=== PATIENT | female | born 1960 | race Caucasian/White ===

== ENCOUNTER 2025-02-11 14:16 | Inpatient (IN) | payer OTHER, MEDICAID ==
[~2025-02-11] VITALS: Ht 160 cm; Wt 87.8 kg
--- NOTE | 2025-02-11 14:31 | ED.PDOC ---
HPI Comments 64 y/o F with PMHx of SVT, BIBA, presents to the ED for CC of chest pain. EMS reports, patient is coming from home where she complains of non-radiating chest pain with associated palpitations onset, [id number]. Upon arrival to scene, patient was found to be in SVT with a heart rate of 170-190bpm. In route to the ED, patient was given 6mg and 12mg of adenosine. Upon arrival to the ED, patient's heart rate at 102 bpm. Patient denies shortness of breath, headache, weakness, nausea, or vomiting. No other symptoms or modifying factors present at this time. Chief Complaint: Chest Pain Time Seen by MD: 14:00 Reviewed Notes: Nurses Notes, Safety Lamp Keeper Notes, Medications, Allergies Allergies: Coded Allergies: Sulfa Antibiotics (Verified Allergy, Unknown, 02/11/25) Vancomycin (Verified Allergy, Unknown, 02/11/25) Information Source: Patient, Emergency Med Personnel Mode of Arrival: EMS Severity: Moderate Timing: Days Duration: Since onset Prehospital treatment: None Location: Substernal Radiation: No Radiation Onset: At Rest Cardiac Risk Factors: None PE Risk Factors: None History of: None Modifying Factors: Nothing Associated Signs and Symptoms: None Past Medical History PAST MEDICAL HISTORY: Denies Surgical History: Denies all surgeries DROSS PULLER History: Denies all DROSS PULLER Hx Family History Family History: Unknown Social History Smoker: Non-Smoker Alcohol: Denies ETOH Use Drugs: Denies Drug Use Lives In: Home Constitutional: denies: chills, diaphoresis, fatigue, fever, malaise, sweats, weakness, others EENTM: denies: blurred vision, double vision, ear bleeding, ear discharge, ear drainage, ear pain, ear ringing, eye pain, eye redness, hearing loss, mouth pain, mouth swelling, nasal discharge, nose bleeding, nose congestion, nose pain, photophobia, tearing, throat pain, throat swelling, voice changes, others Respiratory: denies: cough, hemoptysis, orthopnea, SOB at rest, shortness of breath, SOB with excertion, stridor, wheezing, others Cardiovascular: reports: chest pain, palpitations; denies: dizzy spells, diaphoresis, Dyspnea on exertion, edema, irregular heart beat, left arm pain, lightheadedness, PND, syncope, others Gastrointestinal: denies: abdomen distended, abdominal pain, blood streaked bowels, constipated, diarrhea, dysphagia, difficulty swallowing, hematemesis, melena, nausea, poor appetite, poor fluid intake, rectal bleeding, rectal pain, vomiting, others Genitourinary: denies: abnormal vagina bleeding, burning, dyspareunia, dysuria, flank pain, frequency, hematuria, incontinence, pain, , vagina discharge, urgency, others Neurological: denies: dizziness, fainting, headache, left sided numbness, left sided weakness, numbness, paresthesia, pre-existing deficit, right sided numbness, right sided weakness, seizure, speech problems, tingling, tremors, weakness, others Musculoskeletal: denies: back pain, gout, joint pain, joint swelling, muscle pain, muscle stiffness, neck pain, others Integumetry: denies: bruises, change in color, change in hair/nails, dryness, laceration, lesions, lumps, rash, wounds, others Allergic/Immunocompromised: denies: Difficulty Healing, Frequent Infections, Hives, Itching, others Hematologic/Lymphatic: denies: anemia, blood clots, easy bleeding, easy bruising, swollen glands, others Endocrine: denies: excessive hunger, excessive sweating, excessive thirst, excessive urination, flushing, intolerance to cold, intolerance to heat, unexplained weight gain, unexplained weight loss, others Psychiatric: denies: anxiety, bipolar disorder, depression, hopeless, panic disorder, schizophrenia, sleepless, suicidal, others All Other Systems: Reviewed and Negative Physical Exam General Appearance: Moderate Distress HEENT: Normal ENT Inspection, Pharynx Normal, TMs Normal Neck: Full Range of Motion, Non-Tender, Normal, Normal Inspection Respiratory: Chest Non-Tender, Lungs Clear, No Accessory Muscle Use, No Respiratory Distress, Normal Breath Sounds Cardiovascular: Tachycardia Breast Exam: Deferred Gastrointestinal: No Organomegaly, Non Tender, No Pulsatile Mass, Normal Bowel Sounds, Soft Genitalia: Deferred Pelvic: Deferred Rectal: Deferred Extremities: No calf tenderness, Normal capillary refill, Normal inspection, Normal range of motion, Non-tender, No pedal edema Musculoskeletal : Apperance: Normal Neurologic: Alert, toll operator II-XII nml as Tested, No Motor Deficits, Normal Affect, Normal Mood, No Sensory Deficits Cerebellar Function: NOT DONE Reflexes: NOT DONE Skin: Dry, Normal Color, Warm Peripheral Pulses: 3+ Radial (R), 3+ Radial (L) Lymphatic: No Adenopathy EKG EKG : Pulse Rate (adult): 103 Cardiac Rhythm: ST Was a procedure done? Was a procedure done?: No CP Differential Dx Differential Diagnosis: A-fib, A-Flutter, Angina, Anxiety / Panic Attack, Atrial Dysrhythmia, Electrolyte Disorder, Sinus Tachycardia X-Ray, Labs, Meds, VS Vital Signs Date Time Temp Pulse Resp B/P (MAP) Pulse Ox O2 Delivery O2 Flow Rate FiO2 02/11/25 16:00 97.8 74 12 96/65 (75) 96 97.8 02/11/25 15:34 80 94/62 02/11/25 14:40 Nasal Cannula* 2 28 02/11/25 14:40 97.8 88 21 96/60 (72) 96 97.8 02/11/25 14:34 98 123/78 02/11/25 14:26 98.2 102 20 123/78 (93) 98 98.2 02/11/25 14:16 92 Lab Test 02/11/25 15:09 02/11/25 14:17 Range/Units Troponin I High Sensitivity 14 6 </=34 ng/L White Blood Count 8.7 4.4-10.8 10^3/uL Red Blood Count 5.02 4.0-5.20 10^6/uL Hemoglobin 17.3 H 12.2-16.2 g/dL Hematocrit 50.6 H 36.0-46.0 % Mean Corpuscular Volume 100.8 H 80.0-100.0 fL Mean Corpuscular Hemoglobin 34.5 H 28.0-32.0 pg Mean Corpuscular Hemoglobin Concent 34.2 32.0-36.0 g/dL Red Cell Distribution Width 14.2 11.8-14.3 % Platelet Count 230 140-450 10^3/uL Mean Platelet Volume 8.0 6.9-10.8 fL Neutrophils (%) (Auto) 64.6 37.0-80.0 % Lymphocytes (%) (Auto) 26.7 10.0-50.0 % Monocytes (%) (Auto) 6.4 0.0-12.0 % Eosinophils (%) (Auto) 1.8 0.0-7.0 % Basophils (%) (Auto) 0.5 0.0-2.0 % Neutrophils # (Auto) 5.6 1.6-8.6 10 ^3/uL Lymphocytes # (Auto) 2.3 0.4-5.4 10 ^3/uL Monocytes # (Auto) 0.6 0-1.3 10 ^3/uL Eosinophils # (Auto) 0.2 0-0.8 10 ^3/uL Basophils # (Auto) 0 0-0.2 10 ^3/uL Nucleated Red Blood Cells 0.1 % Sodium Level 144 136-145 mmol/L Potassium Level 4.4 3.5-5.1 mmol/L Chloride Level 113 H 98-107 mmol/L Carbon Dioxide Level 21 20-31 mmol/L Anion Gap 10 5-15 Blood Urea Nitrogen 22 9-23 mg/dL Creatinine 0.98 0.550-1.02 mg/dL Glomerular Filtration Rate Calc 64 >90 mL/min BUN/Creatinine Ratio 22.4 H 10.0-20.0 Serum Glucose 118 H 74-106 mg/dL Calcium Level 9.9 8.7-10.4 mg/dL Current Medications Medications (Trade) Dose Ordered Sig/Augusto Route Start Time Stop Time Status Last Admin Metoprolol Tartrate (Lopressor Tablet) 50 mg ONCE ONCE PO 02/11/25 14:30 02/11/25 14:31 DC 02/11/25 14:34 [place] [id number] Ph: [phone] DIAGNOSTIC IMAGING Diagnostic Imaging Report : [id number] Signed PATIENT: ALEXANDER SIERRA ACCT: [id number] UNIT: [id number] : 1960 LOC: ER ROOM / BED: / AGE / SEX: 64 / F ADM STATUS: REG ER SERVICE 1418 ORDERING PHYSICIAN: DENAE DIEHL MD PROCEDURE(s): CXRP - CHEST PORTABLE REASON: sob ORDER NUMBER(s): [id number], ACCESSION NUMBER(s): [id number] INDICATION: sob TECHNIQUE: Frontal view of the chest. COMPARISON: None FINDINGS: . The heart and mediastinal contours are grossly unremarkable. There is no evidence of pleural disease. The lungs are clear. The bony structures of the chest are intact without fracture. IMPRESSION: 1. No evidence of acute disease. ATED BY: HOWIE TINEO MD DICTATED DATE/TIME: 02/11/25 1502 SIGNED BY: HOWIE TINEO MD SIGNED DATE/TIME: 02/11/25 1502 CC: Patient alert. Was in SVT. Was given adenosine in the field. Vitals stable. Rhythm converted. Was given metoprolol. Was given morphine. Was given Zofran. EKG does show converted rhythm. Chest x-ray reviewed does not show any acute process. Explained to the patient. Continue monitoring. Time of 1ST Reevaluation: 14:30 Reevaluation 1ST: Unchanged Patient Education/Counseling: Diagnosis, Treatment Family Education/Counseling: No Family Present Departure 1 Departure Time of Disposition: 16:33 Impression: Primary Impression: Supraventricular tachycardia Disposition: ADMITTED INPATIENT Admit to: Med Surg Condition: Guarded Critical Care Note Critical Care Time?: Yes (90 min-critical care time only) Critical care comment: Supraventricular tachycardic converted was given metoprolol continue to monitor Stability Stability form required: No Heart Score Heart Score: Heart Score Response (Comments) Value History Slightly Suspicious 0 EKG Normal 0 Age 45-64 1 Risk Factors >3 or Hx ASHD 2 Troponin Normal limit 0 Total 3 I personally scribed for DENAE DIEHL MD ([email or web address]) on 02/11/25 at 14:31. Electronically submitted by Madeleine Conklin [email or web address]). I personally scribed for DENAE DIEHL MD ([email or web address]) on 02/11/25 at 14:44. Electronically submitted by Madeleine Conklin ([email or web address]). I personally scribed for DENAE DIEHL MD ([email or web address]) on 02/11/25 at 14:48. Electronically submitted by Madeleine Conklin ([email or web address]). I personally scribed for DENAE DIEHL MD ([email or web address]) on 02/11/25 at 15:20. Electronically submitted by Madeleine Conklin ([email or web address]). DENAE DIEHL MD February 11, 2025 14:31
[2025-02-11] MEDS: METOPROLOL TARTRATE 50 MG TAB PO ONE (14:34)
[2025-02-11 14:42] LABS: Basophils # (auto) 0 10 ^3/uL (0-0.2); Basophils % (auto) 0.5 % (0.0-2.0); Eosinophils # (auto) 0.2 10 ^3/uL (0-0.8); Eosinophils % (auto) 1.8 % (0.0-7.0); Hematocrit 50.6 % (36.0-46.0); Hemoglobin 17.3 g/dL (12.2-16.2); Lymphocytes # (auto) 2.3 10 ^3/uL (0.4-5.4); Lymphocytes % (auto) 26.7 % (10.0-50.0); Mean Corpuscular Hemoglobin 34.5 pg (28.0-32.0); Mean Corpuscular Hgb Conc. 34.2 g/dL (32.0-36.0); Mean Corpuscular Volume 100.8 fL (80.0-100.0); Monocytes # (auto) 0.6 10 ^3/uL (0-1.3); Monocytes % (auto) 6.4 % (0.0-12.0); Neutrophils # (auto) 5.6 10 ^3/uL (1.6-8.6); Neutrophils % (auto) 64.6 % (37.0-80.0); Nucleated Red Blood Cells % 0.1 %; Platelet Count (auto) 230 10^3/uL (140-450); Red Blood Cells 5.02 10^6/uL (4.0-5.20); Red Cell Distribution Width 14.2 % (11.8-14.3); White Blood Cell 8.7 10^3/uL (4.4-10.8)
[2025-02-11 14:45] LABS: Potassium 4.4 mmol/L (3.5-5.1); Sodium 144 mmol/L (136-145)
[2025-02-11 14:46] LABS: Anion Gap 10 (5-15); Carbon Dioxide 21 mmol/L (20-31)
[2025-02-11 14:47] LABS: Calcium 9.9 mg/dL (8.7-10.4); Chloride 113 mmol/L (98-107)
[2025-02-11 14:52] LABS: BUN/Creatinine Ratio 22.4 (10.0-20.0); Blood Urea Nitrogen 22 mg/dL (9-23); Glucose 118 mg/dL (74-106)
--- NOTE | 2025-02-11 15:04 | DVH ---
INDICATION: sob TECHNIQUE: Frontal view of the chest. COMPARISON: None FINDINGS: . The heart and mediastinal contours are grossly unremarkable. There is no evidence of pleural disea se. The lungs are clear. The bony structures of the chest are intact without fracture. IMPRESSION: 1. No evidence of acute disease.
[2025-02-11] MEDS: ONDANSETRON HCL 4 MG/2 ML VIAL IV ONE (16:44)
[2025-02-11] MEDS: MORPHINE SULFATE 4 MG/ML SYR/VIAL IV ONE (16:45)
[2025-02-11] MEDS ORDERED: ACETAMINOPHEN 325 MG TAB PO PRN (17:15)
[2025-02-11] MEDS ORDERED: DOCUSATE SOD 100 MG CAP PO PRN (17:15)
[2025-02-11] MEDS ORDERED: ONDANSETRON HCL 4 MG/2 ML VIAL IV PRN (17:15)
--- NOTE | 2025-02-11 17:37 | DVHHP2 ---
History of Present Illness Reason for Visit: Palpitations History of Present Illness The patient is a 64-year-old female with past medical history of depression and hyperlipidemia who presented to [facility] ED with complaint of chest pain. Patient reports she has been experiencing a nonradiating chest pain, associated with palpitations, heart rate in the 200 for the past 4 hours, increased shortness of breaths that EMS was called. When EMS arrived on the scene, patient was sent to be in SVT heart rate in the 170s to 190s beats per minute. Patient was given IV 6 mg and 12 mg of adenosine and heart rate converted 102 beats per minutes EN route to our facility ED. patient was seen and evaluated in the ED, laboratory data shows WBC 8.9, hemoglobin 17.3, hematocrit 50.6, platelets 230, sodium 144, potassium 4.4, BUN 22, creatinine 0.98, glucose 118, troponin 14, blood pressure 96/65, heart rate 72, temperature 97.8 F, O2 saturation 96% on oxygen. Chest x-ray show no evidence of acute disease. On my assessment, patient denies chest pain, no headache, no dizziness, no diaphoresis, currently on oxygen, no nausea, no vomiting, no fever, no chills. Patient was admitted for further evaluation and medical management. Past Medical History Depression, hyperlipidemia, SVT. Past Surgical History Denies all surgeries Family History Reviewed, noncontributory to the management of this case. Past Social History The patient lives at home, denies smoking, alcohol or illicit drugs abuse. Review of Systems Constitutional: Yes: Weakness; No: Fever, Chills, Sweats, Malaise, Other Eyes: No: Pain, Vision change, Conjunctivae inflammation, Eyelid inflammation, Other, Redness ENT: No: Ear pain, Ear discharge, Nose pain, Nose discharge, Nose congestion, Mouth pain, Mouth swelling, Throat pain, Throat swelling, Other Respiratory: Shortness of breath; No: Cough, Dry, SOB with excertion, Wheezing, Hemoptysis, Pleuritic Pain, Sputum, Wheezing, Other Cardiovascular: Chest Pain, Palpitations; No: Orthopnea, Paroxysmal Noc. Dyspnea, Edema, Lt Headedness, Other Gastrointestinal: No: Nausea, Vomiting, Abdominal Pain, Diarrhea, Constipation, Melena, Hematochezia, Other Genitourinary: No Dysuria, No Frequency, No Incontinence, No Hematuria, No Retention, No Other Musculoskeletal: No: other, neck pain, shoulder pain, arm pain, back pain, hand pain, leg pain, foot pain Skin: No: Rash, Lesions, Jaundice, Bruising, Other Neurological: No: Weakness, Numbness, Incoordination, Change in speech, Confusion, Seizures, Other Allergies: Coded Allergies: Sulfa Antibiotics (Verified Allergy, Unknown, 02/11/25) Vancomycin (Verified Allergy, Unknown, 02/11/25) Medications Current Medications Medications Dose Ordered Sig/Augusto Route Start Time Stop Time Status Last Admin Dose Admin Aspirin 81 mg DAILY PO 02/12/25 10:00 Gabapentin 300 mg TID PO 02/11/25 22:00 Duloxetine HCl 60 mg DAILY PO 02/12/25 10:00 Quetiapine Fumarate 100 mg BID PO 02/11/25 22:00 Atorvastatin Calcium 20 mg HS PO 02/11/25 22:00 Sodium Chloride 10 ml Q8HR IV 02/11/25 22:00 Acetaminophen/ Hydrocodone Bitart 1 tab Q4HP PRN PO 02/11/25 17:15 Ondansetron HCl 4 mg Q4HP PRN IV 02/11/25 17:15 Docusate Sodium 100 mg BIDPRN PRN PO 02/11/25 17:15 Acetaminophen 650 mg Q6HP PRN PO 02/11/25 17:15 Exam Vital Signs Vital Signs Date Time Temp Pulse Resp B/P (MAP) Pulse Ox O2 Delivery O2 Flow Rate FiO2 02/11/25 17:12 80 16 106/56 02/11/25 16:00 97.8 96 97.8 02/11/25 14:40 Nasal Cannula* 2 28 General Appearance: Alert, Oriented X3, Cooperative, No acute distress HEENT: Atraumatic, PERRLA, EOMI, Mucous membr. moist/pink Respiratory: Clear to auscultation, Normal air movement Cardiovascular: Normal S1, Normal S2, No murmurs, Other (Irregular rate) Abdominal: Normal bowel sounds, Soft, No tenderness, No hepatospenomegaly, No masses Extremities: No clubbing, No cyanosis, No edema, Normal pulses, No tenderness/swelling Skin: No rashes, No breakdown, No significant lesion Neuro: Normal speech, Normal tone, Sensation intact, Cranial nerves 3-12 NL, Reflexes 2+, Other (Generalized weakness) Psych/Mental Status: Mental status NL, Mood NL Labs/Xrays Labs Test 02/11/25 17:05 02/11/25 14:17 Range/Units White Blood Count 8.7 4.4-10.8 10^3/uL Red Blood Count 5.02 4.0-5.20 10^6/uL Hemoglobin 17.3 H 12.2-16.2 g/dL Hematocrit 50.6 H 36.0-46.0 % Mean Corpuscular Volume 100.8 H 80.0-100.0 fL Mean Corpuscular Hemoglobin 34.5 H 28.0-32.0 pg Mean Corpuscular Hemoglobin Concent 34.2 32.0-36.0 g/dL Red Cell Distribution Width 14.2 11.8-14.3 % Platelet Count 230 140-450 10^3/uL Mean Platelet Volume 8.0 6.9-10.8 fL Neutrophils (%) (Auto) 64.6 37.0-80.0 % Lymphocytes (%) (Auto) 26.7 10.0-50.0 % Monocytes (%) (Auto) 6.4 0.0-12.0 % Eosinophils (%) (Auto) 1.8 0.0-7.0 % Basophils (%) (Auto) 0.5 0.0-2.0 % Neutrophils # (Auto) 5.6 1.6-8.6 10 ^3/uL Lymphocytes # (Auto) 2.3 0.4-5.4 10 ^3/uL Monocytes # (Auto) 0.6 0-1.3 10 ^3/uL Eosinophils # (Auto) 0.2 0-0.8 10 ^3/uL Basophils # (Auto) 0 0-0.2 10 ^3/uL Nucleated Red Blood Cells 0.1 % Sodium Level 144 136-145 mmol/L Potassium Level 4.4 3.5-5.1 mmol/L Chloride Level 113 H 98-107 mmol/L Carbon Dioxide Level 21 20-31 mmol/L Anion Gap 10 5-15 Blood Urea Nitrogen 22 9-23 mg/dL Creatinine 0.98 0.550-1.02 mg/dL Glomerular Filtration Rate Calc 64 >90 mL/min BUN/Creatinine Ratio 22.4 H 10.0-20.0 Serum Glucose 118 H 74-106 mg/dL Calcium Level 9.9 8.7-10.4 mg/dL PATIENT: ALEXANDER SIERRA ACCT: [id number] UNIT: [id number] : 1960 LOC: ER ROOM / BED: / AGE / SEX: 64 / F ADM STATUS: REG ER SERVICE 1418 ORDERING PHYSICIAN: DENAE DIEHL MD PROCEDURE(s): CXRP - CHEST PORTABLE REASON: sob ORDER NUMBER(s): [id number], ACCESSION NUMBER(s): [id number] INDICATION: sob TECHNIQUE: Frontal view of the chest. COMPARISON: None FINDINGS: The heart and mediastinal contours are grossly unremarkable. There is no evidence of pleural disease. The lungs are clear. The bony structures of the chest are intact without fracture. IMPRESSION: 1. No evidence of acute disease. Assessment/Plan Assessment/Plan Supraventricular tachycardia Polycythemia vera Chest pain, unspecified Generalized weakness Plan 1. Admit to telemetry unit 2. Breathing treatment 3. Pain control management 4. Management of fluids and electrolytes 5. Consultation for hospitalist 6. Diagnostic tests chest x-ray 7. DVT prophylaxis-on aspirin 8. Repeat labs CBC, CMP in a.m. 9. Continue with current medical management 10. Treatment plan discussed with patient and RN. Patient verbalized understanding. Plan discussed with: Patient, Other (RN) My Orders Orders - TREVA MCCLENDON DNP Procedure Category Date Status Time Aspirin Tablet PHA 02/12/25 In Process 10:00 Gabapentin Capsule PHA 02/11/25 In Process (Neurontin Capsule) 22:00 Duloxetine Hcl PHA 02/12/25 In Process Capsule (Cymbalta 10:00 Quetiapine Fumarate PHA 02/11/25 In Process Tablet (Seroquel Tab 22:00 Atorvastatin (Lipitor) PHA 02/11/25 In Process 22:00 Allergies [place] 02/11/25 In Process 17:03 Code Status CODE 02/11/25 Transmitted 17:03 Sodium Chloride Lock PHA 02/11/25 In Process (Saline Lock Ns) 22:00 Oxygen Per Hour RT 02/11/25 Transmitted 17:03 Hydrocodone-Acet PHA 02/11/25 In Process 5/325mg Tab ([place] 17:15 Ondansetron Hcl PHA 02/11/25 In Process (Zofran) 17:15 Docusate Sodium PHA 02/11/25 In Process Capsule (Colace 17:15 Complete Blood Count LAB 02/12/25 Verified 04:00 Comprehensive LAB 02/12/25 Verified Metabolic Panel 04:00 Cardiac DIET 02/11/25 Transmitted Diet-2gna,Lofat,Lochol Dinner Condition: Serious [facility] 02/11/25 In Process 17:03 Acetaminophen Tablet [facility] 02/11/25 In Process (Tylenol Tablet) 17:15 Bedrest With Bathroom [facility] 02/11/25 In Process Privileg 17:03 Sequential [facility] 02/11/25 In Process Compression Device Admit ADMIT 02/11/25 Verified 17:36 Nitroglycerin [facility] 02/11/25 Verified Sublingual (Ntrostat 17:45 Morphine Sulfate [facility] 02/11/25 Verified Injection 17:45 Stat Ekg For Chest [facility] 02/11/25 Verified Pain 17:36 Notify Md Of Changes [facility] 02/11/25 Verified From Base 17:36 Residential Roofer Helper For [facility] 02/11/25 Verified 24 Hours 17:36 Emergency Dysrhythmia [facility] 02/11/25 Verified Protocol 17:36 Rhythm Strips Once [facility] 02/11/25 Verified Every Shift 17:36 Oxygen By Nasal 02/11/25 Verified Cannula 17:36 Problem List: (1) Supraventricular tachycardia (2) Polycythemia vera (3) Chest pain, unspecified (4) Generalized weakness Date of Service: February 11, 2025 Billing Provider: TREVA MCCLENDON DNP Common Visit Codes: [id number] INP/OBS CARE (HIGH) TREVA MCCLENDON DNP February 11, 2025 17:37
[2025-02-11] MEDS ORDERED: MORPHINE SULFATE INJ 2 MG/ml SYRG IV PRN (17:45)
[2025-02-11] MEDS ORDERED: NITROGLYCERIN 0.4 MG SL TAB SL PRN (17:45)
[2025-02-11] MEDS: ASPirin 81 mg TAB PO ONE (18:55)
--- NOTE | 2025-02-11 18:59 | ECG ---
[facility] Test Date: 2025-02-11 Test Time: 14:12:49 Pat Name: ALEXANDER SIERRA Department: ED Room: [address] [place] [address] Gender: F Contract Technician: radha : 1960 Requested By: DENAE DIEHL Order Number: [id number] Reading MD: Ben Wang Measurements Intervals [place] Rate: 92 P: 77 VT: 140 QRS: 70 QRSD: 78 T: 64 QT: 345 QTc: 427 Interpretive Statements Sinus rhythm Consider left atrial enlargement RSR' in V1 or V2, probably normal variant Electronically Signed On 02-15-2025 22:05:19 PDT by Ben Wang Please click the below link to view image of tracing.
[2025-02-11] MEDS: HYDROcodone-ACET 5/325MG TAB PO PRN (19:22)
[2025-02-11 19:50] VITALS: RESP 18; O2SAT 96
[2025-02-11 22:08] VITALS: BP 99/51; PULSE 70; RESP 18; TEMP 98.7; O2SAT 92
[2025-02-11] MEDS: ATORVASTATIN 20 MG TAB PO SCH (22:42)
[2025-02-11] MEDS: SODIUM CHLOR 0.9% PF (SALINE LOCK) 10ML VIAL/SYR IV SCH (22:43)
[2025-02-11] MEDS: QUEtiapine FUMARATE 100 MG TAB PO SCH (22:43)
[2025-02-11] MEDS: GABAPENTIN 300 MG CAP PO SCH (22:43)
[2025-02-12] VITALS (10 sets, daily range): BP systolic 110–124; BP diastolic 59–88; PULSE 66–81; RESP 14–96; TEMP 97.5–98.4; O2SAT 88–94
[2025-02-12 06:59] LABS: Basophils # (auto) 0 10 ^3/uL (0-0.2); Basophils % (auto) 0.5 % (0.0-2.0); Hemoglobin 15.4 g/dL (12.2-16.2); Lymphocytes # (auto) 3.4 10 ^3/uL (0.4-5.4); Mean Corpuscular Hgb Conc. 34.3 g/dL (32.0-36.0); Monocytes # (auto) 0.5 10 ^3/uL (0-1.3); Red Cell Distribution Width 14.3 % (11.8-14.3)
[2025-02-12 07:01] LABS: Eosinophils # (auto) 0.2 10 ^3/uL (0-0.8); Eosinophils % (auto) 2.7 % (0.0-7.0); Hematocrit 44.9 % (36.0-46.0); Lymphocytes % (auto) 42.4 % (10.0-50.0); Mean Corpuscular Hemoglobin 34.7 pg (28.0-32.0); Mean Corpuscular Volume 100.9 fL (80.0-100.0); Monocytes % (auto) 6.7 % (0.0-12.0); Neutrophils # (auto) 3.9 10 ^3/uL (1.6-8.6); Neutrophils % (auto) 47.7 % (37.0-80.0); Nucleated Red Blood Cells % 0.2 %; Platelet Count (auto) 196 10^3/uL (140-450); Red Blood Cells 4.44 10^6/uL (4.0-5.20); White Blood Cell 8.1 10^3/uL (4.4-10.8)
[2025-02-12 07:02] LABS: Alanine Aminotransferase 12 U/L (7-40); Albumin 4.1 g/dL (3.2-4.8); Anion Gap 10 (5-15); BUN/Creatinine Ratio 28.9 (10.0-20.0); Blood Urea Nitrogen 22 mg/dL (9-23); Calcium 9.4 mg/dL (8.7-10.4); Carbon Dioxide 23 mmol/L (20-31); Glucose 101 mg/dL (74-106); Potassium 3.8 mmol/L (3.5-5.1); Sodium 142 mmol/L (136-145); Total Protein 6.2 g/dL (5.7-8.2)
[2025-02-12 07:03] LABS: Bilirubin, Total 0.6 mg/dL (0.2-1.0)
[2025-02-12 07:04] LABS: Alkaline Phosphatase 124 U/L (46-116); Aspartate Aminotransferase 9 U/L (13-40); Chloride 109 mmol/L (98-107)
[2025-02-12] MEDS: DULoxetine HCL 30 MG CAP PO SCH ×2 (10:00→11:03)
[2025-02-12] MEDS: methylPREDNISolone SOD SUCC 40 MG/ML VL IV SCH (11:02)
[2025-02-12] MEDS: HYDROcodone-ACET 5/325MG TAB PO PRN (11:03)
[2025-02-12] MEDS: ASPirin 81 mg TAB PO SCH (11:04)
[2025-02-12] MEDS: METOPROLOL SUCCINATE XL 50 MG TAB PO SCH (11:04)
[2025-02-12] MEDS: CITALOPRAM HYDROBR 20 MG TAB PO SCH (11:04)
[2025-02-12] MEDS: NICOTINE 21MG/24 HR TOPICAL PATCH TD SCH (11:05)
[2025-02-12] MEDS: LEVALBUTEROL HCL 1.25 MG/3 ML NEB NEB SCH (14:58)
[2025-02-12] MEDS: IPRATROPIUM BROM 0.5 MG/2.5ML INH SOL NEB SCH (14:58)
[2025-02-12] MEDS: MORPHINE SULFATE 4 MG/ML SYR/VIAL IV PRN (17:11)
[2025-02-12 18:05] LABS: Rapid Influenza A Negative (Negative); Rapid Influenza B Negative (Negative)
[2025-02-12 18:05] LABS: COVID19 ANTIGEN SOFIA FIA NEGATIVE (NEGATIVE)
--- NOTE | 2025-02-12 20:36 | DVHPNRES ---
Progress Note Date Seen: February 12, 2025 Resident Creating Document: MYRANDA PEÑALOZA RESIDENT Medical Necessity Reason Pt with a Central, PICC or Fol: No Subjective Review of Systems Patient is a 64-year-old female with a past medical history of depression, supra ventricular tachycardia,? COPD was brought to the ED via EMS after she had palpitations at home. Patient reported that she was in her bed and started to feel dizzy following which she checked her pulse and she could not recorded and she felt palpitations following which she called with the EMS and reported that she had high blood pressure and heart rate in the 120s. Patient had an episode of supraventricular tachycardia in the 1st week of December 2024 when she was in the hospital following which she underwent a left heart catheterization which did not show any vaso-occlusive disease with the patient was started on a beta елена metoprolol. Patient reported that since that episode she had been fine until yesterday when she experienced an episode of palpitations associated with chest pain which was dull in character, nonradiating and relieved on its own once the palpitations went away. Past medical history: As per HPI Past surgical history: Left femur surgery, left knee surgery Social history: Patient smokes a pack of cigarettes per day for the last 20 years, denies alcohol in any other drug use Home medications: Citalopram 40 mg daily, duloxetine 60 mg b.i.d., quetiapine 400 mg at night, aspirin 81 mg, rosuvastatin 20 mg, metoprolol 100 mg Review of systems Patient seen and examined at the bedside On 1-2 L oxygen, denied using oxygen at home saturating between 92-94% Denied palpitations, chest pain, dizziness, blurred vision, headache. Objective vital signs Vital Sign Date Time Temp Pulse Resp B/P (MAP) Pulse Ox O2 Delivery O2 Flow Rate FiO2 02/12/25 17:41 80 16 115/75 02/12/25 17:00 97.5 90 97.5 02/12/25 15:18 1.0 24 02/12/25 14:58 Room Air Total Intake and Output 02/11/25 02/11/25 02/12/25 15:00 23:00 07:00 Intake Total 500 ml Balance 500 ml medications Current Medications Medications Dose Ordered Sig/Augusto Route Start Time Stop Time Status Last Admin Dose Admin Aspirin 81 mg DAILY PO 02/12/25 10:00 02/12/25 11:04 81 MG Gabapentin 300 mg TID PO 02/11/25 22:00 02/12/25 14:00 300 MG Duloxetine HCl 60 mg DAILY PO 02/12/25 10:00 Hold 02/12/25 11:03 60 MG Sodium Chloride 10 ml Q8HR IV 02/11/25 22:00 02/12/25 14:23 10 ML Ondansetron HCl 4 mg Q4HP PRN IV 02/11/25 17:15 Acetaminophen 650 mg Q6HP PRN PO 02/11/25 17:15 Atorvastatin Calcium 40 mg HS PO 02/12/25 22:00 Acetaminophen/ Hydrocodone Bitart 2 tab Q6HP PRN PO 02/12/25 09:30 02/12/25 11:03 2 TAB Quetiapine Fumarate 400 mg HS PO 02/12/25 22:00 Duloxetine HCl 60 mg BID PO 02/12/25 10:00 Citalopram Hydrobromide 40 mg DAILY PO 02/12/25 10:00 02/12/25 11:04 40 MG Nicotine 1 patch DAILY TD 02/12/25 10:00 02/12/25 11:05 1 PATCH Levalbuterol HCl 0.625 mg Q8HR NEB 02/12/25 14:00 02/12/25 14:58 0.625 MG Ipratropium [place] 0.5 mg Q8HR NEB 02/12/25 14:00 02/12/25 14:58 0.5 MG Methylprednisolone Sodium Succinate 40 mg DAILY IV 02/12/25 10:00 02/12/25 11:02 40 MG Metoprolol Succinate 50 mg DAILY PO 02/13/25 10:00 Morphine Sulfate 1 mg Q6HP PRN IV 02/12/25 17:15 02/12/25 17:11 1 MG Examination Gen - no pallor, no icterus, no cyanosis, no clubbing, no LAD, no edema . Skin - Patients skin is warm and dry. HEENT - normocephalic, atraumatic, moist mucous membranes. Neck - full ROM, no LAD, no JVD Pulmonary - B/L mildly diminished breath sounds, no crackles, diffuse wheezing present, no stridor. cardiovascular - regular S1,S2 heard, no added sounds, no murmurs heard. peripheral pulses normal radial 2+, pedal 2+. capillary refill normal <2 secs. GI - soft, nontender abdomen. no hepatospleenomegaly. Bowel sounds normoactive Neurological - Patient is A/O X 3 . Bilateral upper extremity strength 5/5, bilateral lower extremity strength 5/5, no facial droop, normal speech, no tremor, no sensory deficiets. laboratory and microbiology Laboratory Tests 02/12/25 05:17 Test 02/12/25 05:17 Range/Units Serum Glucose 101 74-106 mg/dL Microbiology Date/Time Source Procedure Growth Status 02/11/25 23:15 Nose MRSA Screen - Final Complete Problem List/Assessment/Plan Problem List/Assessment/Plan Palpitations, sinus tachycardia H/o supraventricular tachycardia NSTEMI likely type 2 due to demand ischemia - ECG shows sinus tachycardia with no new ST segment or T-wave changes - s/p left heart catheterization in December 2024 with no vaso-occlusive disease seen - on aspirin, atorvastatin and metoprolol succinate Acute hypoxic respiratory COPD exacerbation - 20 pack year history of smoking - patient does not follow a engine repair supervisor and has never undergone a spirometry test - methylprednisolone IV - DuoNebs q.8 hours H/o major depression Chronic lower back and leg pain - on citalopram and duloxetine - quetiapine - patient follows with pain management and is continued on [place] 10/325 q.6 hours p.r.n PUD prophylaxis: Famotidine DVT prophylaxis: Enoxaparin Goals of care discussed with the patient for over 29 minutes. Full code Time spent: 37 minutes Plan discussed with Dr. Bolton Plan discussed with: Patient My Orders My Orders Orders - MYRANDA PEÑALOZA RESIDENT Procedure Category Date Status Time Atorvastatin (Lipitor) PHA 02/12/25 In Process 22:00 Hydrocodone-Acet PHA 02/12/25 In Process 5/325mg Tab ([place] 09:30 Quetiapine Fumarate PHA 02/12/25 In Process Tablet (Seroquel Tab 22:00 Duloxetine Hcl PHA 02/12/25 In Process Capsule (Cymbalta 10:00 Citalopram Tablet PHA 02/12/25 In Process (Celexa Tablet) 10:00 Nicotine 21mg/24hr PHA 02/12/25 In Process (Nicoderm 21mg/24hr) 10:00 Levalbuterol Hcl PHA 02/12/25 In Process (Xopenex Medneb) 14:00 Ipratropium Medneb PHA 02/12/25 In Process (Atrovent Medneb) 14:00 Methylprednisolone PHA 02/12/25 In Process Sod Succ (Solu Medrol 10:00 Metoprolol Xl PHA 02/13/25 In Process Succinate (Toprol Xl) 10:00 Date of Service: February 12, 2025 Billing Provider: BASILIO BOLTON MD Common Visit Codes: [id number] INP/OBS CARE(HIGH) MYRANDA PEÑALOZA RESIDENT February 12, 2025 20:36 BASILIO BOLTON MD February 12, 2025 22:40
[2025-02-12] MEDS: QUEtiapine FUMARATE 100 MG TAB PO SCH (21:13)
[2025-02-12] MEDS: ATORVASTATIN 20 MG TAB PO SCH (21:13)
[2025-02-12] MEDS: ENOXAPARIN SOD 40 MG/0.4 ML SYRINGE SC ONE (21:18)
[2025-02-13] VITALS (12 sets, daily range): BP systolic 108–133; BP diastolic 62–83; PULSE 64–80; RESP 16–94; TEMP 97.6–98.8; O2SAT 88–96
[2025-02-13 07:18] LABS: Calcium 8.8 mg/dL (8.7-10.4); Potassium 3.7 mmol/L (3.5-5.1); Sodium 142 mmol/L (136-145)
[2025-02-13 07:19] LABS: Anion Gap 7 (5-15); Carbon Dioxide 26 mmol/L (20-31)
[2025-02-13 07:24] LABS: BUN/Creatinine Ratio 28.9 (10.0-20.0); Blood Urea Nitrogen 22 mg/dL (9-23)
[2025-02-13 07:25] LABS: Basophils # (auto) 0 10 ^3/uL (0-0.2); Eosinophils # (auto) 0.1 10 ^3/uL (0-0.8); Hemoglobin 15.2 g/dL (12.2-16.2); Lymphocytes # (auto) 2.2 10 ^3/uL (0.4-5.4); Mean Corpuscular Hemoglobin 34.6 pg (28.0-32.0); Neutrophils # (auto) 7.9 10 ^3/uL (1.6-8.6); Platelet Count (auto) 181 10^3/uL (140-450); Red Blood Cells 4.39 10^6/uL (4.0-5.20)
[2025-02-13 07:27] LABS: Basophils % (auto) 0.1 % (0.0-2.0); Eosinophils % (auto) 0.5 % (0.0-7.0); Hematocrit 44.3 % (36.0-46.0); Lymphocytes % (auto) 20.3 % (10.0-50.0); Mean Corpuscular Hgb Conc. 34.3 g/dL (32.0-36.0); Monocytes # (auto) 0.7 10 ^3/uL (0-1.3); Monocytes % (auto) 6.1 % (0.0-12.0); Nucleated Red Blood Cells % 0.1 %; Red Cell Distribution Width 13.5 % (11.8-14.3); White Blood Cell 10.9 10^3/uL (4.4-10.8)
[2025-02-13 07:28] LABS: Folate (Folic Acid) 12.2 ng/mL (>5.38)
[2025-02-13 07:30] LABS: Chloride 109 mmol/L (98-107)
[2025-02-13 07:31] LABS: Glucose 118 mg/dL (74-106)
[2025-02-13] MEDS: CYANOCOBALAMIN (B-12) 1000 MCG/1 ML VIAL IM ONE (10:00)
[2025-02-13] MEDS: FAMOTIDINE 20 MG TAB PO SCH (10:00)
[2025-02-13] MEDS: METOPROLOL SUCCINATE XL 50 MG TAB PO SCH (11:15)
[2025-02-13] MEDS: ENOXAPARIN SOD 40 MG/0.4 ML SYRINGE SC SCH (11:16)
--- NOTE | 2025-02-13 15:41 | DVH ---
Procedure: CT CHEST WITHOUT CONTRAST Reason for study/Clinical History: COPD Comparison Study: Chest radiograph dated 02/11/2025 TECHNIQUE: Multidetector CT of the chest was performed from the lung apices to the upper abdomen with out the use of intravenous contract. Axial, coronal and sagittal multiplanar reformats were performed . Radiation Dose Information: CT Dose: CTDI volume is 13.26 mGy. Dose-length product is 495.9 mGy*cm The dose indicators for CT are the volume Computed Tomography (CT) Dose Index (CTDIvol) and the Dose Length Product (DLP), and are measured in units of mGy and mGy-cm, respectively. These indicators are not patient dose, but values generated from the CT scanner acquisition factors. The report includes radiation exposure data for exposures received during this examination. FINDINGS: Lower neck: Unremarkable. Lungs: Right lower lobe consolidation. Subsegmental linear atelectasis in the left lung base. Heart/Vascular Structures: Cardiomegaly. Lymph Nodes: No adenopathy Pleura: No pleural effusion or significant pneumothorax. Musculoskeletal: No acute osseous abnormality. Soft tissues: Bilateral breast prosthesis. Upper abdomen: Limited portions of the upper abdomen are unremarkable. IMPRESSION: Right lower lobe consolidation. Cardiomegaly.
[2025-02-13] MEDS: cefTRIAXone 1GM/50ML D5W 50 ML IV ONE (16:20)
[2025-02-13] MEDS: DOXYCYCLINE 100 MG TAB/CAP PO ONE (16:20)
[2025-02-13] MEDS ORDERED: DOXY1CAP57 PO (17:40)
[2025-02-13] MEDS ORDERED: PRED20TA2 PO (17:40)
[2025-02-13] MEDS ORDERED: METO-6 PO (17:40)
[2025-02-13] MEDS ORDERED: CEFP200T15 PO (17:40)
--- NOTE | 2025-02-13 17:46 | DVHDSRES ---
Discharge Summary Date of Admission Resident Creating Document: MYRANDA PEÑALOZA RESIDENT February 11, 2025 at 17:36 Date of Discharge: February 13, 2025 Admitting Diagnosis Supraventricular tachycardia Polycythemia vera Chest pain, unspecified Generalized weakness Wounds: none Labs/Diagnostic Data: Laboratory Results Test 02/13/25 06:20 02/12/25 09:21 02/12/25 05:17 02/12/25 00:00 White Blood Count 10.9 10^3/uL (4.4-10.8) Red Blood Count 4.39 10^6/uL (4.0-5.20) Hemoglobin 15.2 g/dL (12.2-16.2) Hematocrit 44.3 % (36.0-46.0) Mean Corpuscular Volume 101.0 fL (80.0-100.0) Mean Corpuscular Hemoglobin 34.6 pg (28.0-32.0) Mean Corpuscular Hemoglobin Concent 34.3 g/dL (32.0-36.0) Red Cell Distribution Width 13.5 % (11.8-14.3) Platelet Count 181 10^3/uL (140-450) Mean Platelet Volume 8.2 fL (6.9-10.8) Neutrophils (%) (Auto) 73.0 % (37.0-80.0) Lymphocytes (%) (Auto) 20.3 % (10.0-50.0) Monocytes (%) (Auto) 6.1 % (0.0-12.0) Eosinophils (%) (Auto) 0.5 % (0.0-7.0) Basophils (%) (Auto) 0.1 % (0.0-2.0) Neutrophils # (Auto) 7.9 10 ^3/uL (1.6-8.6) Lymphocytes # (Auto) 2.2 10 ^3/uL (0.4-5.4) Monocytes # (Auto) 0.7 10 ^3/uL (0-1.3) Eosinophils # (Auto) 0.1 10 ^3/uL (0-0.8) Basophils # (Auto) 0 10 ^3/uL (0-0.2) Nucleated Red Blood Cells 0.1 % Sodium Level 142 mmol/L (136-145) Potassium Level 3.7 mmol/L (3.5-5.1) Chloride Level 109 mmol/L (98-107) Carbon Dioxide Level 26 mmol/L (20-31) Anion Gap 7 (5-15) Blood Urea Nitrogen 22 mg/dL (9-23) Creatinine 0.76 mg/dL (0.550-1.02) Glomerular Filtration Rate Calc 87 mL/min (>90) BUN/Creatinine Ratio 28.9 (10.0-20.0) Serum Glucose 118 mg/dL (74-106) Calcium Level 8.8 mg/dL (8.7-10.4) Vitamin B12 Level 233 pg/mL (211-911) Vitamin D 25-Hydroxy 36.5 ng/mL (30.0-100) Folic Acid 12.20 ng/mL (>5.38) Influenza Type A Antigen Negative (Negative) Influenza Type B Antigen Negative (Negative) Total Bilirubin 0.6 mg/dL (0.2-1.0) Aspartate Amino Transferase (AST) 9 U/L (13-40) Alanine Aminotransferase (ALT) 12 U/L (7-40) Alkaline Phosphatase 124 U/L (46-116) Total Protein 6.2 g/dL (5.7-8.2) Albumin 4.1 g/dL (3.2-4.8) SARS-CoV-2 Antigen (Rapid) Negative (NEGATIVE) Test 02/11/25 17:05 Troponin I High Sensitivity 43 ng/L (</=34) Other Laboratory Tests 02/13/25 06:20 Brief Hx & Hospital Course: Patient is a 64-year-old female with a past medical history of depression, supra ventricular tachycardia,? COPD was brought to the ED via EMS after she had palpitations at home. Patient reported that she was in her bed and started to feel dizzy following which she checked her pulse and she could not recorded and she felt palpitations following which she called with the EMS and reported that she had high blood pressure and heart rate in the 120s. Patient had an episode of supraventricular tachycardia in the 1st week of December 2024 when she was in the hospital following which she underwent a left heart catheterization which did not show any vaso-occlusive disease with the patient was started on a beta елена metoprolol. Patient reported that since that episode she had been fine until yesterday when she experienced an episode of palpitations associated with chest pain which was dull in character, nonradiating and relieved on its own once the palpitations went away. Past medical history: As per HPI Past surgical history: Left femur surgery, left knee surgery Social history: Patient smokes a pack of cigarettes per day for the last 20 years, denies alcohol in any other drug use Home medications: Citalopram 40 mg daily, duloxetine 60 mg b.i.d., quetiapine 400 mg at night, aspirin 81 mg, rosuvastatin 20 mg, metoprolol 100 mg Brief hospital course Initial 12 lead ECG showed sinus tachycardia with a heart rate around 105, showed no new ST or T-wave changes. Troponin levels were mildly elevated likely due to demand ischemia. Patient recently had cardiac workup including a left heart catheterization done in the 1st week of December which did not show any vaso- occlusive disease. Patient had shortness of breath and had to be put on oxygen support and on exam had diffuse wheezing following which patient was started on nebulizer and was given IV steroids. CT chest without contrast showed right lower lobe small consolidation for which she was given IV antibiotics. Patient's oxygen requirement improved and she was weaned of oxygen eventually. Patient did not have any episode of tachycardia or arrhythmia on the telemetry. Patient was discharged in stable condition to home Discharge plan Medications: Prednisolone 40 mg daily for 5 days, cefpodoxime 200 mg b.i.d. for 5 days, doxycycline 100 mg b.i.d. for 5 days Continue on all other home medications including metoprolol succinate 100 mg daily and other psych and antidepressants Patient is advised to follow up with her primary care provider within 1 week She is explained that because of long history of smoking she likely has COPD and needs further evaluation with a injection molding supervisor with spirometry and 6 minute walk test. She is a advised to strictly avoid smoking and is given nicotine patches for home. Consults/Reason for consult none Operations or Procedures none Condition at Discharge: Good Final Diagnosis/Problems List Palpitations, sinus tachycardia H/o supraventricular tachycardia NSTEMI likely type 2 due to demand ischemia Acute hypoxic respiratory COPD exacerbation H/o major depression Chronic lower back and leg pain Discharge Disposition: Home Discharge Instruct/Medications Diet: Cardiac 2g Na,low cholest Activity: No Restrictions, As Tolerated Follow Up/Referral: Follow up with the primary care provider in one week Patient needs to follow up with injection molding supervisor for further workup of COPD Medications: as per EMR Discharge Statement: "Patient was advised to return to the ER or call 911 if any headaches, dizziness, shortness of breath, chest pain, abdominal pain, bleeding, fevers, or worsening of medical condition. Patient was counseled about treatment plan, medications, possible side effects, patientverbalized understanding. All questions were answered to the best of my ability. This discharge took greater then 30 minutes in planning, reviewing documentation, counseling the patient, and discussing with other team members." ASSESSMENT ASSESSMENT Assessment Palpitations, sinus tachycardia H/o supraventricular tachycardia NSTEMI likely type 2 due to demand ischemia Acute hypoxic respiratory COPD exacerbation H/o major depression Chronic lower back and leg pain Date of Service: February 13, 2025 Billing Provider: BASILIO JARRELL MD Common Visit Codes: [id number] DISCH DAY >30min MYRANDA PEÑALOZA RESIDENT February 13, 2025 17:46 BASILIO JARRELL MD February 14, 2025 05:25
== END 2025-02-13 17:30 | disposition home or self-care (01) | DRG 280 ==
LOC: ER 14:16 → EDBD 14:16 → OVERFLOW 17:36 → TELE-EAST 22:44
PROVIDERS: ADMIT Internal Medicine; ATTEND Internal Medicine
DX: I47.10 Supraventricular tachycardia, unspecified (principal); J96.01 Acute respiratory failure with hypoxia; I21.A1 Myocardial infarction type 2; J44.1 Chronic obstructive pulmonary disease with (acute) exacerbation; D45 Polycythemia vera; E78.5 Hyperlipidemia, unspecified; Z88.1 Allergy status to other antibiotic agents; Z88.2 Allergy status to sulfonamides; Z87.891 Personal history of nicotine dependence; Z79.899 Other long term (current) drug therapy
CPT/HCPCS: 36415; 71045; 71250; 80048; 80053; 82306; 82607; 82746; 84484; 85025; 87081; 87426; 87804; 93005; 94640; 96374; 96375; 99291; 99292; G0378; J2405

== ENCOUNTER 2025-05-13 20:53 | Emergency (ER) | payer OTHER, MEDICAID ==
[~2025-05-13] VITALS: Ht 170.2 cm; Wt 84.0 kg
[~2025-05-13 20:53] MED LIST: CEFP200T15 PO; DOXY1CAP57 PO; METO-6 PO; PRED20TA2 PO
--- NOTE | 2025-05-13 21:03 | ECG ---
[facility] Test Date: 2025-05-13 Test Time: 20:56:59 Pat Name: ALEXANDER SIERRA Department: Room: Gender: F Art Instructor: DILLON : 1960 Requested By: EMERGENCY EMERGENCY Order Number: [id number] Reading MD: Ben Wang Measurements Intervals [place] Rate: 96 P: 61 CA: 147 QRS: 49 QRSD: 101 T: 49 QT: 355 QTc: 449 Interpretive Statements Sinus rhythm Probable left atrial enlargement RSR' in V1 or V2, right VCD or RVH Baseline wander in lead(s) V4,V5,V6 Electronically Signed On 05-14-2025 13:12:41 PDT by Ben Wang Please click the below link to view image of tracing.
--- NOTE | 2025-05-13 21:09 | ED.PDOC ---
HPI Comments 64 year old female presents to the ED via EMS with a chief complaint of chest pain onset today. Patient states she began experiencing chest pain radiates to RT arm, rates pain 8/10. She was given Nitro and Aspirin by EMS in route to ED, with no relief of symptoms. She noticed pain is causing shortness of breath. Initially patient's BP was 180 systolic, after medication is was 120 systolic. She has episodes of SVT, current HR was 110. PMHx COPD, CHF, HTN, SVT. Denies headache, dizziness, nausea, vomiting, diarrhea, fever, chills. No other symptoms or modifying factors present at this time. Chief Complaint: Chest Pain Time Seen by MD: 21:00 Primary Care Provider: UNKNOWN Reviewed Notes: Medications, Allergies Allergies: Coded Allergies: Sulfa Antibiotics (Verified Allergy, Unknown, 02/11/25) Vancomycin (Verified Allergy, Unknown, 02/11/25) Home Meds Active Scripts Doxycycline Monohydrate (Doxycycline Monohydrate) 100 Mg Cap, 100 MG PO BID for 5 Days, #10 CAP 0 Refills Prov:MYRANDA PEÑALOZA 02/13/25 Cefpodoxime Proxetil (Cefpodoxime Proxetil) 200 Mg Tab, 200 MG PO BID for 5 Days, #10 TAB 0 Refills Prov:MYRANDA PEÑALOZA 02/13/25 Prednisone (Prednisone) 20 Mg Tab, 40 MG PO DAILY for 5 Days, #10 MG 0 Refills Prov:MYRANDA PEÑALOZA 02/13/25 Metoprolol Succinate (Toprol Xl) 50 Mg Tab, 100 MG PO DAILY for 28 Days, #56 TAB Prov:MYRANDA PEÑALOZA 02/13/25 Information Source: Patient, Emergency Med Personnel Mode of Arrival: EMS Severity: Moderate Timing: Hours Duration: Since onset Prehospital treatment: Oxygen Location: Chest (L) Radiation: Arm (R) Quality: Sharp Onset: At Rest Cardiac Risk Factors: Smoker, HTN PE Risk Factors: None History of: Similar pain in past Modifying Factors: Nothing Associated Signs and Symptoms: SOB Past Medical History PAST MEDICAL HISTORY: CHF, COPD, HTN Surgical History: Denies all surgeries HEAD OF HUMAN RESOURCES History: Denies all HEAD OF HUMAN RESOURCES Hx Family History Family History: Unknown Social History Smoker: Cigarettes Alcohol: Denies ETOH Use Drugs: Denies Drug Use Lives In: Home Constitutional: denies: chills, diaphoresis, fatigue, fever, malaise, sweats, weakness, others EENTM: denies: blurred vision, double vision, ear bleeding, ear discharge, ear drainage, ear pain, ear ringing, eye pain, eye redness, hearing loss, mouth pain, mouth swelling, nasal discharge, nose bleeding, nose congestion, nose pain, photophobia, tearing, throat pain, throat swelling, voice changes, others Respiratory: reports: shortness of breath; denies: cough, hemoptysis, orthopnea, SOB at rest, SOB with excertion, stridor, wheezing, others Cardiovascular: reports: chest pain; denies: dizzy spells, diaphoresis, Dyspnea on exertion, edema, irregular heart beat, left arm pain, lightheadedness, palpitations, PND, syncope, others Gastrointestinal: denies: abdomen distended, abdominal pain, blood streaked bowels, constipated, diarrhea, dysphagia, difficulty swallowing, hematemesis, melena, nausea, poor appetite, poor fluid intake, rectal bleeding, rectal pain, vomiting, others Genitourinary: denies: abnormal vagina bleeding, burning, dyspareunia, dysuria, flank pain, frequency, hematuria, incontinence, pain, , vagina discharge, urgency, others Neurological: denies: dizziness, fainting, headache, left sided numbness, left sided weakness, numbness, paresthesia, pre-existing deficit, right sided numbness, right sided weakness, seizure, speech problems, tingling, tremors, weakness, others Musculoskeletal: denies: back pain, gout, joint pain, joint swelling, muscle pain, muscle stiffness, neck pain, others Integumetry: denies: bruises, change in color, change in hair/nails, dryness, laceration, lesions, lumps, rash, wounds, others Allergic/Immunocompromised: denies: Difficulty Healing, Frequent Infections, Hives, Itching, others Hematologic/Lymphatic: denies: anemia, blood clots, easy bleeding, easy bruising, swollen glands, others Endocrine: denies: excessive hunger, excessive sweating, excessive thirst, excessive urination, flushing, intolerance to cold, intolerance to heat, unexplained weight gain, unexplained weight loss, others Psychiatric: denies: anxiety, bipolar disorder, depression, hopeless, panic disorder, schizophrenia, sleepless, suicidal, others All Other Systems: Reviewed and Negative Physical Exam General Appearance: No Apparent Distress, Normal HEENT: Normal ENT Inspection, Pharynx Normal, TMs Normal Neck: Full Range of Motion, Non-Tender, Normal, Normal Inspection Respiratory: Chest Non-Tender, Lungs Clear, No Accessory Muscle Use, No Res piratory Distress, Normal Breath Sounds Cardiovascular: No Edema, No JVD, No Murmur, No Gallop, Normal Peripheral Pulses, Regular Rate/Rhythm Breast Exam: Deferred Gastrointestinal: No Organomegaly, Non Tender, No Pulsatile Mass, Normal Bowel Sounds, Soft Genitalia: Deferred Pelvic: Deferred Rectal: Deferred Extremities: No calf tenderness, Normal capillary refill, Normal inspection, Normal range of motion, Non-tender, No pedal edema Musculoskeletal : Apperance: Normal Neurologic: Alert, mate ship II-XII nml as Tested, No Motor Deficits, Normal Affect, Normal Mood, No Sensory Deficits Cerebellar Function: Normal Reflexes: Normal Skin: Dry, Normal Color, Warm Lymphatic: No Adenopathy Was a procedure done? Was a procedure done?: No CP Differential Dx Differential Diagnosis: Angina, Electrolyte Disorder, Heart Failure, [place], V-Fib, V-Tach, Other X-Ray, Labs, Meds, VS Vital Signs Date Time Temp Pulse Resp B/P (MAP) Pulse Ox O2 Delivery O2 Flow Rate FiO2 05/14/25 00:45 72 16 124/63 (83) 97 05/13/25 22:35 98.1 77 16 137/85 (102) 97 98.1 05/13/25 22:30 72 18 96 Nasal Cannula* 2 05/13/25 21:57 87 05/13/25 21:24 20 Nasal Cannula* 2 28 05/13/25 21:24 95 Nasal Cannula* 2 28 05/13/25 21:02 98.6 101 20 129/85 96 98.6 05/13/25 20:56 96 Lab Test 05/13/25 21:49 05/13/25 21:06 Range/Units Troponin I High Sensitivity 3 L < 3 L </=34 ng/L White Blood Count 7.7 4.4-10.8 10^3/uL Red Blood Count 4.51 4.0-5.20 10^6/uL Hemoglobin 15.9 12.2-16.2 g/dL Hematocrit 45.8 36.0-46.0 % Mean Corpuscular Volume 101.7 H 80.0-100.0 fL Mean Corpuscular Hemoglobin 35.3 H 28.0-32.0 pg Mean Corpuscular Hemoglobin Concent 34.7 32.0-36.0 g/dL Red Cell Distribution Width 13.4 11.8-14.3 % Platelet Count 215 140-450 10^3/uL Mean Platelet Volume 7.7 6.9-10.8 fL Neutrophils (%) (Auto) 63.8 37.0-80.0 % Lymphocytes (%) (Auto) 28.0 10.0-50.0 % Monocytes (%) (Auto) 5.0 0.0-12.0 % Eosinophils (%) (Auto) 3.0 0.0-7.0 % Basophils (%) (Auto) 0.2 0.0-2.0 % Neutrophils # (Auto) 4.9 1.6-8.6 10 ^3/uL Lymphocytes # (Auto) 2.1 0.4-5.4 10 ^3/uL Monocytes # (Auto) 0.4 0-1.3 10 ^3/uL Eosinophils # (Auto) 0.2 0-0.8 10 ^3/uL Basophils # (Auto) 0 0-0.2 10 ^3/uL Nucleated Red Blood Cells 0.2 % Sodium Level 143 136-145 mmol/L Potassium Level 3.8 3.5-5.1 mmol/L Chloride Level 112 H 98-107 mmol/L Carbon Dioxide Level 25 20-31 mmol/L Anion Gap 6 5-15 Blood Urea Nitrogen 9 9-23 mg/dL Creatinine 0.89 0.550-1.02 mg/dL Glomerular Filtration Rate Calc 72 >90 mL/min BUN/Creatinine Ratio 10.1 10.0-20.0 Serum Glucose 117 H 74-106 mg/dL Calcium Level 9.2 8.7-10.4 mg/dL Magnesium Level 2.0 1.6-2.6 mg/dL Total Bilirubin 0.3 0.2-1.0 mg/dL Aspartate Amino Transferase (AST) 16 13-40 U/L Alanine Aminotransferase (ALT) 17 7-40 U/L Alkaline Phosphatase 145 H 46-116 U/L B-Type Natriuretic Peptide 84.57 0-100 pg/mL Total Protein 6.6 5.7-8.2 g/dL Albumin 4.3 3.2-4.8 g/dL Current Medications Medications (Trade) Dose Ordered Sig/Augusto Route Start Time Stop Time Status Last Admin Acetaminophen/ Hydrocodone Bitart (Milam 10/325MG Tab) 1 tab ONCE ONCE PO 05/13/25 21:15 05/13/25 21:16 DC 05/13/25 21:15 Albuterol (Ventolin Medneb) 5 mg ONCE ONCE NEB 05/13/25 21:15 05/13/25 21:16 DC 05/13/25 21:18 Prednisone 20 mg ONCE ONCE PO 05/13/25 21:15 05/13/25 21:16 DC 05/13/25 21:15 Acetaminophen/ Hydrocodone Bitart (Milam 5/325MG Tab) 1 tab ONCE ONCE PO 05/14/25 00:15 05/14/25 00:16 DC 05/14/25 00:26 [place] [address] Ph: [phone] DIAGNOSTIC IMAGING Diagnostic Imaging Report : [id number] Signed PATIENT: ALEXANDER SIERRA ACCT: [id number] UNIT: [id number] : 1960 LOC: ER ROOM / BED: / AGE / SEX: 64 / F ADM STATUS: REG ER SERVICE 04 ORDERING PHYSICIAN: ERIBERTO CURTIS MD PROCEDURE(s): CXR1 - CHEST XRAY 1 VIEW REASON: SOB ORDER NUMBER(s): [id number], ACCESSION NUMBER(s): [id number] EXAM: XY CHEST XRAY 1 VIEW TECHNIQUE: Single frontal chest radiograph CLINICAL HISTORY: SOB COMPARISON: XY CHEST PORTABLE on DOS: 02/11/25 Findings/Impression: Frontal chest radiograph demonstrates no acute osseous or superficial soft tissue abnormalities. The trachea is midline. Mediastinum is within normal limits. Mildly indistinct right heart border may reflect right middle lobe atelectasis and/or infection. No pneumothorax or pleural effusions. ATED BY: MALATHI JONES DO DICTATED DATE/TIME: 05/13/252148 SIGNED BY: MALATHI JONES DO SIGNED DATE/TIME: 05/13/252148 CC: Time of 1ST Reevaluation: 21:30 Reevaluation 1ST: Unchanged Patient Education/Counseling: Diagnosis, Treatment Family Education/Counseling: No Family Present SEPSIS Sepsis Screen Physician Orders Electrocardigram (05/13/25 23:58) Chest Xray 1 View (05/13/25 21:05) Vital Signs Date Time Temp Pulse Resp B/P (MAP) Pulse Ox O2 Delivery O2 Flow Rate FiO2 05/14/25 00:45 72 16 124/63 (83) 97 05/13/25 22:35 98.1 77 16 137/85 (102) 97 98.1 05/13/25 22:30 72 18 96 Nasal Cannula* 2 05/13/25 21:57 87 05/13/25 21:24 20 Nasal Cannula* 2 05/13/25 21:24 95 Nasal Cannula* 2 05/13/25 21:02 98.6 101 20 129/85 96 98.6 05/13/25 20:56 96 Laboratory Tests Test 05/13/25 21:06 White Blood Count 7.7 10^3/uL (4.4-10.8) Medications Medications Dose Ordered Sig/Augusto Route Start Time Stop Time Status Last Admin Dose Admin Acetaminophen/ Hydrocodone Bitart 1 tab ONCE ONCE PO 05/13/25 21:15 05/13/25 21:16 DC 05/13/25 21:15 Acetaminophen/ Hydrocodone Bitart 1 tab ONCE ONCE PO 05/14/25 00:15 05/14/25 00:16 DC 05/14/25 00:26 Albuterol 5 mg ONCE ONCE NEB 05/13/25 21:15 05/13/25 21:16 DC 05/13/25 21:18 Prednisone 20 mg ONCE ONCE PO 05/13/25 21:15 05/13/25 21:16 DC 05/13/25 21:15 Departure 1 Departure Time of Disposition: 23:30 Impression: Primary Impression: SVT (supraventricular tachycardia) Additional Impression: COPD (chronic obstructive pulmonary disease) Disposition: 01 HOME / SELF CARE / HOMELESS Condition: Stable Discharged With: Self Critical Care Note Critical Care Time?: No Stability Stability form required: No Heart Score Heart Score: Heart Score Response (Comments) Value History Slightly Suspicious 0 EKG Repolarization Disturb 1 Age 45-64 1 Risk Factors 1 or 2 risk factors 1 Troponin Normal limit 0 Total 3 I personally scribed for ERIBERTO CURTIS MD ([email or web address]) on 05/13/25 at 21:09. El ectronically submitted by Carol Middleton ([email or web address]). I personally scribed for ERIBERTO CURTIS MD ([email or web address]) on 05/13/25 at 22:56. Babita ctronically submitted by Carol Middleton [email or web address]). ERIBERTO CURTIS MD May 13, 2025 21:09
[2025-05-13] MEDS: HYDROcodone-ACET 10/325MG TAB PO ONE (21:15)
[2025-05-13] MEDS: predniSONE 20 MG TAB PO ONE (21:15)
[2025-05-13] MEDS: ALBUTEROL SULF 2.5 MG/0.5ML(0.5%) NEB SOLN NEB ONE (21:18)
[2025-05-13 21:37] LABS: Hematocrit 45.8 % (36.0-46.0); Hemoglobin 15.9 g/dL (12.2-16.2); Mean Corpuscular Hemoglobin 35.3 pg (28.0-32.0); Mean Corpuscular Volume 101.7 fL (80.0-100.0); Nucleated Red Blood Cells % 0.2 %
--- NOTE | 2025-05-13 21:51 | DVH ---
EXAM: XY CHEST XRAY 1 VIEW TECHNIQUE: Single frontal chest radiograph CLINICAL HISTORY: SOB COMPARISON: XY CHEST PORTABLE on DOS: 02/11/25 Findings/Impression: Frontal chest radiograph demonstrates no acute osseous or superficial soft tissue abnormalities. The trachea is midline. Mediastinum is within normal limits. Mildly indistinct right heart border may reflect right middle lobe atelectasis and/or infection. No pneumothorax or pleural effusions.
[2025-05-13 21:57] LABS: Alanine Aminotransferase 17 U/L (7-40); Albumin 4.3 g/dL (3.2-4.8); Anion Gap 6 (5-15); BUN/Creatinine Ratio 10.1 (10.0-20.0); Blood Urea Nitrogen 9 mg/dL (9-23); Calcium 9.2 mg/dL (8.7-10.4); Carbon Dioxide 25 mmol/L (20-31); Magnesium 2.0 mg/dL (1.6-2.6); Potassium 3.8 mmol/L (3.5-5.1); Sodium 143 mmol/L (136-145); Total Protein 6.6 g/dL (5.7-8.2)
[2025-05-13 21:58] LABS: Alkaline Phosphatase 145 U/L (46-116); Chloride 112 mmol/L (98-107); Glucose 117 mg/dL (74-106)
[2025-05-13 21:59] LABS: Bilirubin, Total 0.3 mg/dL (0.2-1.0)
[2025-05-13 22:30] VITALS: PULSE 72; RESP 18; O2SAT 96
[2025-05-13 22:35] VITALS: TEMP 98.1
[2025-05-13] MEDS ORDERED: MORPHINE SULFATE INJ 2 MG/ml SYRG IV PRN (22:45)
--- NOTE | 2025-05-13 23:29 | ECG ---
[facility] Test Date: 2025-05-13 Test Time: 21:57:40 Pat Name: ALEXANDER SIERRA Department: Room: Gender: F [employer] System Administrator: DILLON : 1960 Requested By: EMERGENCY EMERGENCY Order Number: [id number] Reading MD: Ben Wang Measurements Intervals [place] Rate: 87 P: 43 WV: 153 QRS: 34 QRSD: 105 T: 39 QT: 370 QTc: 445 Interpretive Statements Sinus rhythm RSR' in V1 or V2, right VCD or RVH Electronically Signed On 05-14-2025 13:12:43 PDT by Ben Wang Please click the below link to view image of tracing.
[2025-05-14] MEDS: HYDROcodone-ACET 5/325MG TAB PO ONE (00:26)
[2025-05-14 00:45] VITALS: BP 124/63; PULSE 72; RESP 16; O2SAT 97
== END 2025-05-14 00:42 | disposition home or self-care (01) ==
LOC: EDBD 20:53 → ER 20:53
DX: I47.10 Supraventricular tachycardia, unspecified (principal); J44.9 Chronic obstructive pulmonary disease, unspecified; I11.0 Hypertensive heart disease with heart failure; I50.9 Heart failure, unspecified; F17.210 Nicotine dependence, cigarettes, uncomplicated; Z79.899 Other long term (current) drug therapy; Z79.52 Long term (current) use of systemic steroids; Z88.1 Allergy status to other antibiotic agents; Z88.2 Allergy status to sulfonamides
CPT/HCPCS: 36415; 71045; 80053; 83735; 83880; 84484; 85025; 93005; 94640; 99285; J2270; J7512